=== PATIENT | male | born 1935 | race Caucasian/White ===

== ENCOUNTER 2019-08-09 20:00 | Inpatient (IN) ==
[2019-08-09] MEDS ORDERED: ONDANSETRON 4 MG/2 ML VIAL IV STA ×2 (20:28→21:02)
[2019-08-09] MEDS ORDERED: HYDROmorphone 2 MG/1 ML VIAL IV STA ×2 (20:28→21:02)
[2019-08-09 20:33] LABS: Basophils # 0.1 10*3/uL (0.0-0.2); Basophils % 0.5 % (0.0-0.8); Eosinophils # 0.2 10*3/uL (0.0-0.87); Hematocrit 42.8 VOL% (42.0-52.0); Hemoglobin 13.3 GM/DL (14.0-18.0); Immature Granulocytes % 0.9 %; Immature Granulocytes Absolute 0.14 #; Lymphocytes # 2.4 10*3/uL (1.4-4.0); Lymphocytes % 15.9 % (21.2-54.2); Mean Corpuscular HGB Conc 31.1 GM/DL (32-36); Mean Platelet Volume 9.5 FL (9.6-12.0); Monocytes % 8.9 % (1.7-12.7); Neutrophils % 72.8 % (38.7-73.9); Platelet Count 218 T/CUMM (130-400); Red Blood Count 4.46 MC/CUMM (3.8-5.5); Red Cell Distribution Width 12.8 % (9.3-17.3); White Blood Count 15.1 T/CUMM (4-12)
[2019-08-09 20:48] LABS: Albumin 3.5 G/DL (3.4-5.0); Bilirubin,Total 0.7 MG/DL (0.2-1.0); Calcium 8.7 MG/DL (8.5-10.1); Osmolality,Calculated 285.8 MOS/KG (273-304); Total Protein 7.2 G/DL (6.4-8.3)
[2019-08-09] MEDS ORDERED: SODIUM CHLORIDE 0.9% 1,000 ML IV STA (21:03)
[2019-08-09 21:14] LABS: Apearance,Urine CLEAR (Clear); Bacteria,Urine Occasional /HPF (Few); Bilirubin,Urine Negative (Negative); Blood, Urine Small mg/dL (Negative); Glucose,Urine (UA) 50 mg/dL (Negative); Hyaline Casts,Urine 3 /LPF (0-3); Ketones,Urine Negative (Negative); Mucus,Urine Occasional /LPF (Occasional); Nitrite,Urine Negative (Negative); Protein,Urine 30 MG/DL; RBC,Urine 12 /HPF (0-4); Squamous Epithelial Cell,Urine Occasional /HPF (0-10); Urine Color Yellow (Yellow); Urine Urobilinogen < 2.0 EU/DL (0.2-1.0); WBC,Urine 3 /HPF (0-6)
[2019-08-09] MEDS ORDERED: NICOTINE 21 MG/24 HR PATCH TRANSDERM PRN (21:35)
[2019-08-09 22:03] LABS: Risk Ratio 3.71; VLDL CHOLESTEROL 34.6 MG/DL
[2019-08-09] MEDS: MORPHINE 4 MG/1 ML VIAL IV PRN (23:42)
[2019-08-09] MEDS: ONDANSETRON 4 MG/2 ML VIAL IV PRN (23:45)
[2019-08-10] MEDS: PROMETHAZINE 25 MG/1 ML VIAL IM PRN ×2 (02:12→11:24)
[2019-08-10] MEDS: MORPHINE 4 MG/1 ML VIAL IV PRN (03:45)
[2019-08-10] MEDS ORDERED: cefTRIAXone 1,000 MG in SYRINGE 1 EACH IV SCH (04:00)
[2019-08-10] MEDS ORDERED: HYDROmorphone 2 MG/1 ML VIAL IV ONE (05:50)
[2019-08-10 05:55] LABS: Albumin 3.7 G/DL (3.4-5.0); Bilirubin,Total 1.1 MG/DL (0.2-1.0); Calcium 8.4 MG/DL (8.5-10.1); Osmolality,Calculated 289.3 MOS/KG (273-304); Total Protein 7.2 G/DL (6.4-8.3)
[2019-08-10] MEDS: ONDANSETRON 4 MG/2 ML VIAL IV PRN ×3 (06:19→13:45)
[2019-08-10] MEDS ORDERED: HYDROmorphone 2 MG/1 ML VIAL IV PRN (08:05)
[2019-08-10] MEDS ORDERED: SODIUM CHLORIDE 0.9% 1,000 ML IV SCH (08:30)
[2019-08-10] MEDS: HYDROmorphone 2 MG/1 ML VIAL IV PRN ×3 (11:23→16:39)
[2019-08-10] MEDS: PIPERACILLIN/TAZOBACTAM 3,375 MG in SODIUM CHLORIDE 0.9% 100 ML IV SCH ×2 (11:32→19:25)
[2019-08-10] MEDS: SODIUM CHLORIDE 0.9% 1,000 ML IV SCH ×3 (16:35→19:25)
[2019-08-10 17:48] LABS: Apearance,Urine CLEAR (Clear); Bilirubin,Urine Negative (Negative); Blood, Urine Small mg/dL (Negative); Glucose,Urine (UA) Negative (Negative); Ketones,Urine Negative (Negative); Mucus,Urine Occasional /LPF (Occasional); Nitrite,Urine Negative (Negative); Protein,Urine Negative; RBC,Urine <1 /HPF (0-4); Urine Color Yellow (Yellow); Urine Specific Gravity 1.013 (1.001-1.035); Urine Urobilinogen < 2.0 EU/DL (0.2-1.0); WBC,Urine 1 /HPF (0-6)
[2019-08-10] MEDS ORDERED: LORazepam 2 MG/1 ML VIAL IV ONE (19:43)
[2019-08-11] MEDS: SODIUM CHLORIDE 0.9% 1,000 ML IV SCH ×3 (01:25→10:08)
[2019-08-11] MEDS: PIPERACILLIN/TAZOBACTAM 3,375 MG in SODIUM CHLORIDE 0.9% 100 ML IV SCH ×3 (02:54→19:04)
[2019-08-11 05:11] LABS: Basophils # 0.1 10*3/uL (0.0-0.2); Basophils % 0.3 % (0.0-0.8); Eosinophils % 0.1 % (0.00-10.9); Hemoglobin 13.2 GM/DL (14.0-18.0); Immature Granulocytes % 1.5 %; Lymphocytes # 1.1 10*3/uL (1.4-4.0); Lymphocytes % 5.5 % (21.2-54.2); Mean Corpuscular HGB Conc 32.2 GM/DL (32-36); Mean Corpuscular Volume 94.5 FL (87-102); Mean Platelet Volume 9.3 FL (9.6-12.0); Monocytes % 8.1 % (1.7-12.7); Neutrophils % 84.5 % (38.7-73.9); Platelet Count 212 T/CUMM (130-400); Red Blood Count 4.34 MC/CUMM (3.8-5.5); Red Cell Distribution Width 13.2 % (9.3-17.3); White Blood Count 19.4 T/CUMM (4-12)
[2019-08-11 05:35] LABS: Albumin 3.6 G/DL (3.4-5.0); Bilirubin,Total 0.9 MG/DL (0.2-1.0); Calcium 9.1 MG/DL (8.5-10.1); Osmolality,Calculated 276.8 MOS/KG (273-304); Total Protein 7.5 G/DL (6.4-8.3)
[2019-08-11] MEDS ORDERED: FUROSEMIDE 40 MG/4 ML VIAL IV ONE (07:40)
[2019-08-11] MEDS ORDERED: LEVALBUTEROL 0.63 MG/3 ML NEB RESP TX ONE (07:40)
[2019-08-11] MEDS: FINASTERIDE 5 MG TABLET PO SCH (09:39)
[2019-08-11] MEDS: MONTELUKAST 10 MG TABLET PO SCH (09:39)
[2019-08-11] MEDS: TAMSULOSIN 0.4 MG CAPSULE PO SCH (09:39)
[2019-08-11] MEDS: amLODIPine 10 MG TABLET PO SCH (09:39)
[2019-08-11] MEDS: ALBUTEROL/IPRATROPIUM 3 ML NEB RESP TX SCH ×3 (10:50→19:25)
[2019-08-11] MEDS: HYDROmorphone 2 MG/1 ML VIAL IV PRN ×2 (11:50→17:47)
[2019-08-11] MEDS: ONDANSETRON 4 MG/2 ML VIAL IV PRN (11:50)
[2019-08-12] MEDS: ALBUTEROL/IPRATROPIUM 3 ML NEB RESP TX SCH ×7 (00:04→23:15)
[2019-08-12] MEDS: HYDROmorphone 2 MG/1 ML VIAL IV PRN ×2 (03:15→06:39)
[2019-08-12] MEDS: PIPERACILLIN/TAZOBACTAM 3,375 MG in SODIUM CHLORIDE 0.9% 100 ML IV SCH ×3 (03:16→20:09)
[2019-08-12 04:24] LABS: Basophils % 0.2 % (0.0-0.8); Hematocrit 38.9 VOL% (42.0-52.0); Hemoglobin 12.6 GM/DL (14.0-18.0); Immature Granulocytes % 3.3 %; Immature Granulocytes Absolute 0.61 #; Lymphocytes # 0.9 10*3/uL (1.4-4.0); Mean Corpuscular HGB Conc 32.4 GM/DL (32-36); Mean Corpuscular Volume 94.4 FL (87-102); Mean Platelet Volume 9.9 FL (9.6-12.0); Monocytes % 8.2 % (1.7-12.7); Neutrophils % 83.3 % (38.7-73.9); Platelet Count 201 T/CUMM (130-400); Red Blood Count 4.12 MC/CUMM (3.8-5.5); Red Cell Distribution Width 13.2 % (9.3-17.3); White Blood Count 18.6 T/CUMM (4-12)
[2019-08-12 04:47] LABS: Band Neutrophils 2 % (0-10); Lymphocytes 3 % (20-55); Metamyelocytes 1 %; Segmented Neutrophils 86 % (50-85); Total Cells Counted 100
[2019-08-12 04:48] LABS: Platelet Estimate Normal; Polychromasia Slight; Spherocytes Slight
[2019-08-12 04:51] LABS: Albumin 3.1 G/DL (3.4-5.0); Bilirubin,Total 0.8 MG/DL (0.2-1.0); Calcium 9.3 MG/DL (8.5-10.1); Total Protein 7.3 G/DL (6.4-8.3)
[2019-08-12 09:01] LABS: ABG Base Excess 1.6 MMOL/L (-2.5-2.5); ABG HCO3 25.7 MMOL/L (20-26); ABG Oxygen Saturation 89.8 % (95-100); ABG PCO2 37.9 MM HG (35-48); ABG PH 7.438 (7.35-7.45); ABG TCO2 22.6 MMOL/L (23-27)
[2019-08-12] MEDS: POTASSIUM CHLORIDE RIDER 10 MEQ in PREMIX 1 EACH IV SCH ×3 (09:01→12:02)
[2019-08-12] MEDS ORDERED: BUPIVACAINE MPF 0.25% 30 ML VIAL ONE (09:38)
[2019-08-12] MEDS ORDERED: TISSUE ADHESIVE 1 EACH APPLICATOR TOP ONE (09:38)
[2019-08-12] MEDS ORDERED: LIDOCAINE 1%/EPI INJ 20 ML VIAL ONE (09:38)
[2019-08-12] MEDS ORDERED: DEXTROSE 50% 25 GM/50 ML VIAL IV PRN (10:16)
[2019-08-12] MEDS ORDERED: GLUCAGON 1 MG VIAL IM PRN (10:16)
[2019-08-12] MEDS: FINASTERIDE 5 MG TABLET PO SCH (10:23)
[2019-08-12] MEDS: TAMSULOSIN 0.4 MG CAPSULE PO SCH (10:23)
[2019-08-12] MEDS: amLODIPine 10 MG TABLET PO SCH (10:23)
[2019-08-12] MEDS: MONTELUKAST 10 MG TABLET PO SCH (10:24)
[2019-08-12] MEDS ORDERED: PROPOFOL 1,000 MG/100 ML BOTTLE IV SCH (12:00)
[2019-08-12] MEDS ORDERED: PROPOFOL 200 MG/20 ML VIAL IV ONE (12:00)
[2019-08-12] MEDS ORDERED: ETOMIDATE 40 MG/20 ML VIAL IV ONE (12:01)
[2019-08-12] MEDS ORDERED: DEXAMETHASONE 4 MG/1 ML VIAL ONE (12:01)
[2019-08-12] MEDS ORDERED: LIDOCAINE 2% 5 ML VIAL ONE (12:01)
[2019-08-12] MEDS ORDERED: SEVOFLURANE 1 UNIT/15 MINUTE INH ONE (12:01)
[2019-08-12] MEDS: SODIUM CHLORIDE 0.9% 1,000 ML IV SCH (12:01)
[2019-08-12] MEDS ORDERED: PHENYLEPHRINE 10 MG/1 ML VIAL IV ONE ×2 (12:01)
[2019-08-12] MEDS ORDERED: ONDANSETRON 4 MG/2 ML VIAL ONE (12:01)
[2019-08-12] MEDS ORDERED: fentaNYL 100 MCG/2 ML VIAL ONE (12:01)
[2019-08-12] MEDS ORDERED: SODIUM CHLORIDE 0.9% 1,000 ML IV ONE (12:02)
[2019-08-12] MEDS ORDERED: SODIUM CHLORIDE 0.9% 250 ML IV ONE (12:02)
[2019-08-12] MEDS ORDERED: PHENYLEPHRINE 1 MG/10 ML SYRINGE IV ONE (12:02)
[2019-08-12] MEDS ORDERED: ACETAMINOPHEN 1,000 MG/100 ML VIAL IV ONE (12:02)
[2019-08-12] MEDS ORDERED: SUCCINYLCHOLINE 200 MG/10 ML VIAL ONE (12:02)
[2019-08-12] MEDS ORDERED: ROCURONIUM 100 MG/10 ML VIAL IV ONE (12:02)
[2019-08-12] MEDS ORDERED: PHENYLEPHRINE DRIP 40 MG/250 ML PREMIX IV PRN (12:27)
[2019-08-12] MEDS: INSULIN REGULAR 100 UNIT/ML SUBCUT SCH ×3 (12:33→20:09)
[2019-08-12 12:38] LABS: Hematocrit 37.8 VOL% (42.0-52.0); Hemoglobin 11.9 GM/DL (14.0-18.0)
[2019-08-12 12:46] LABS: ABG Base Excess -2.5 MMOL/L (-2.5-2.5); ABG HCO3 22.3 MMOL/L (20-26); ABG Oxygen Saturation 99.7 % (95-100); ABG PCO2 47.8 MM HG (35-48); ABG PH 7.311 (7.35-7.45); ABG TCO2 21.5 MMOL/L (23-27); Allen Test Positive; Pt O2 Delivery Device Ventilator
[2019-08-12 13:09] LABS: Calcium 8.7 MG/DL (8.5-10.1); Osmolality,Calculated 279.7 MOS/KG (273-304)
[2019-08-12] MEDS ORDERED: LACTATED RINGERS 1,000 ML IV SCH (15:00)
[2019-08-12 15:08] LABS: ABG Base Excess -1.9 MMOL/L (-2.5-2.5); ABG HCO3 22.8 MMOL/L (20-26); ABG Oxygen Saturation 98.5 % (95-100); ABG PCO2 36.7 MM HG (35-48); ABG PH 7.395 (7.35-7.45); ABG TCO2 19.8 MMOL/L (23-27); Allen Test Positive; Pt O2 Delivery Device Ventilator
[2019-08-12 20:07] LABS: Hematocrit 37.7 VOL% (42.0-52.0); Hemoglobin 12.1 GM/DL (14.0-18.0)
[2019-08-13] MEDS: ALBUTEROL/IPRATROPIUM 3 ML NEB RESP TX SCH ×6 (03:07→23:13)
[2019-08-13 05:19] LABS: Basophils % 0.1 % (0.0-0.8); Hematocrit 37.1 VOL% (42.0-52.0); Hemoglobin 11.9 GM/DL (14.0-18.0); Immature Granulocytes Absolute 0.11 #; Lymphocytes # 0.7 10*3/uL (1.4-4.0); Lymphocytes % 5.9 % (21.2-54.2); Mean Corpuscular HGB Conc 32.1 GM/DL (32-36); Mean Corpuscular Volume 94.6 FL (87-102); Mean Platelet Volume 9.6 FL (9.6-12.0); Monocytes % 5.9 % (1.7-12.7); Neutrophils % 87.1 % (38.7-73.9); Platelet Count 187 T/CUMM (130-400); Red Blood Count 3.92 MC/CUMM (3.8-5.5); Red Cell Distribution Width 13.1 % (9.3-17.3); White Blood Count 11.2 T/CUMM (4-12)
[2019-08-13 05:36] LABS: Albumin 2.6 G/DL (3.4-5.0); Bilirubin,Total 0.4 MG/DL (0.2-1.0); Calcium 9.1 MG/DL (8.5-10.1); Osmolality,Calculated 283.5 MOS/KG (273-304); Total Protein 6.9 G/DL (6.4-8.3)
[2019-08-13] MEDS: PIPERACILLIN/TAZOBACTAM 3,375 MG in SODIUM CHLORIDE 0.9% 100 ML IV SCH ×3 (05:55→20:50)
[2019-08-13] MEDS: INSULIN REGULAR 100 UNIT/ML SUBCUT SCH ×4 (08:02→20:54)
[2019-08-13] MEDS: MONTELUKAST 10 MG TABLET PO SCH (08:03)
[2019-08-13] MEDS: FINASTERIDE 5 MG TABLET PO SCH (08:03)
[2019-08-13] MEDS: PANTOPRAZOLE 40 MG VIAL IV SCH (08:03)
[2019-08-13] MEDS: amLODIPine 10 MG TABLET PO SCH (08:03)
[2019-08-13] MEDS: TAMSULOSIN 0.4 MG CAPSULE PO SCH (08:03)
[2019-08-14] MEDS: ALBUTEROL/IPRATROPIUM 3 ML NEB RESP TX SCH ×3 (02:23→10:45)
[2019-08-14] MEDS: PIPERACILLIN/TAZOBACTAM 3,375 MG in SODIUM CHLORIDE 0.9% 100 ML IV SCH (04:57)
[2019-08-14 05:42] LABS: Basophils % 0.3 % (0.0-0.8); Eosinophils # 0.1 10*3/uL (0.0-0.87); Eosinophils % 0.6 % (0.00-10.9); Hematocrit 36.4 VOL% (42.0-52.0); Hemoglobin 11.6 GM/DL (14.0-18.0); Immature Granulocytes Absolute 0.11 #; Lymphocytes # 0.9 10*3/uL (1.4-4.0); Lymphocytes % 7.8 % (21.2-54.2); Mean Corpuscular HGB Conc 31.9 GM/DL (32-36); Mean Platelet Volume 9.7 FL (9.6-12.0); Monocytes % 9.9 % (1.7-12.7); Neutrophils % 80.4 % (38.7-73.9); Platelet Count 212 T/CUMM (130-400); Red Blood Count 3.83 MC/CUMM (3.8-5.5); Red Cell Distribution Width 13.1 % (9.3-17.3); White Blood Count 11.1 T/CUMM (4-12)
[2019-08-14 06:04] LABS: Albumin 2.6 G/DL (3.4-5.0); Bilirubin,Total 0.5 MG/DL (0.2-1.0); Calcium 8.9 MG/DL (8.5-10.1); Osmolality,Calculated 285.4 MOS/KG (273-304); Total Protein 6.9 G/DL (6.4-8.3)
[2019-08-14] MEDS: INSULIN REGULAR 100 UNIT/ML SUBCUT SCH (07:01)
[2019-08-14 07:29] VITALS: BP 167/83
[2019-08-14] MEDS ORDERED: BISACODYL 10 MG SUPP RECTAL ONE (08:14)
[2019-08-14] MEDS ORDERED: POTASSIUM CHLORIDE 20 MEQ TABLET PO SCH (09:00)
[2019-08-14] MEDS ORDERED: ASPIRIN 325 MG TABLET PO SCH (09:00)
[2019-08-14] MEDS ORDERED: ENALAPRIL 20 MG TABLET PO SCH (09:00)
[2019-08-14] MEDS ORDERED: hydroCHLOROthiazide 25 MG TABLET PO SCH (09:00)
[2019-08-14] MEDS: POLYETHYLENE GLYCOL POWDER 17 GM PACK PO SCH ×2 (09:26→10:02)
[2019-08-14] MEDS: amLODIPine 10 MG TABLET PO SCH (09:27)
[2019-08-14] MEDS: TAMSULOSIN 0.4 MG CAPSULE PO SCH (09:27)
[2019-08-14] MEDS: MONTELUKAST 10 MG TABLET PO SCH (09:28)
[2019-08-14] MEDS: FINASTERIDE 5 MG TABLET PO SCH (09:28)
[2019-08-14] MEDS: PANTOPRAZOLE 40 MG VIAL IV SCH (09:28)
[2019-08-14] MEDS ORDERED: POTASSIUM CHLORIDE 20 MEQ TABLET PO ONE (09:42)
== END 2019-08-14 10:57 | disposition swing bed (61) | DRG 417 ==
LOC: EDUNIT# → EDBD → EDSEX → N.EDINP 20:00 → N.ED 20:00 → N.5E 22:18 → SUATTDRO 08-10 11:01 → N.ICU 08-12 12:43 → N.3E 08-13 12:20 → N.ICU 08-13 12:21 → N.3E 08-13 12:52
PROVIDERS: ADMIT Internal Medicine; ATTEND Hospitalist
PROC: LAPCHOL (2019-08-12 10:15)